=== PATIENT | male | born 1965 | race Caucasian/White ===

== ENCOUNTER 2017-06-01 11:44 | Emergency (ER) | payer OTHER ==
[2017-06-01 12:23] VITALS: BP 128/78
--- NOTE | 2017-06-01 15:54 | UC ---
Skin Complaint HPI - HPI Summary HPI Summary: pt p/w 2 month h/o intermittant redness and swelling of a skin tag located in her left axilla. the is no pain or any other sx. - History of Current Complaint Chief Complaint: UCSkin Time Seen by Provider: 06/01/17 12:36 Stated Complaint: LEFT ARMPIT SKIN COMPLAINT Hx Obtained From: Patient Onset/Duration: Gradual Onset, Lasting Weeks - 2, Still Present, Worse Since - last coule of days Timing: Intermittent Episodes Lasting: Onset Severity: Moderate Current Severity: Moderate Pain Intensity: 0 Pain Scale Used: 0-10 Numeric Location: Diffuse Character: Swelling, Redness Aggravating: Other - cathing on slee ves Alleviating: Nothing Associated Signs & Symptoms: Positive: Negative. Negative: Nausea, Vomiting, Diaphoresis, Weakness, Pallor, Shivering, Difficulty Breathing, Fever, Chills, Cough, Chest Pain, Hoarseness, Throat Tightening, Drainage, Tenderness - Allergy/Home Medications Allergies/Adverse Reactions: Allergies Allergy/AdvReac Type Severity Reaction Status Date / Time No Known Allergies Allergy Verified 06/01/17 11:59 Review of Systems Constitutional: Negative Skin: Other - see hpi Eyes: Negative ENT: Negative Respiratory: Negative Cardiovascular: Negative Gastrointestinal: Negative Genitourinary: Negative Musculoskeletal: Negative Neurological: Negative Psychological: Negative All Other Systems Reviewed And Are Negative: Yes PMH/Surg Hx/FS Hx/Imm Hx - Additional Past Medical History Additional PMH: obesitiy Cardiovascular History: Myocardial Infarction Other History Of: Negative For: HIV, Hepatitis B, Hepatitis C - Surgical History Surgical History: None - Family History Known Family History: Positive: Hypertension Negative: Cardiac Disease, Diabetes - Social History Lives: With Family Alcohol Use: None Substance Use Type: None Smoking Status (MU): Never Smoked Tobacco Physical Exam Triage Information Reviewed: Yes Appearance: Well-Appearing, No Pain Distress, Obese Vital Signs: Initial Vital Signs Temp 97.7 F 06/01/17 11:59 Pulse 63 06/01/17 11:59 Resp 16 06/01/17 11:59 BP 128/78 06/01/17 11:59 Pulse Ox 98 06/01/17 11:59 Vital Signs Reviewed: Yes Eyes: Positive: Conjunctiva Clear. Negative: Discharge ENT: Positive: Hearing grossly normal. Negative: Muffled/hoarse voice Respiratory: Positive: Lungs clear, Normal breath sounds, No respiratory distress, No accessory muscle use Cardiovascular: Positive: RRR, No Murmur Musculoskeletal Exam: Normal Neurological: Positive: Alert, Muscle Tone Normal Psychological: Positive: Age Appropriate Behavior Skin: Positive: Other - multiple skin tags over head, neck, chest and upper ext. in left axilla, pt has a large (1x3cm) pedunculated red swollen skin lesion. the lesion has some scaling and maceration. no tendernes at all. no fluctulance Course/Dx - Differential Diagnoses - Skin Complaint Differential Diagnoses: Abscess, Allergic Reaction, Cellulitis, Contact Dermatitis, Impetigo, Other - sqaumous cell carcinoma - Diagnoses Provider Diagnoses: cellulitis Discharge - Discharge Plan Condition: Stable Disposition: HOME Prescriptions: Cephalexin CAP* [Keflex CAP*] 500 mg PO BID #20 cap Patient Education Materials: Cellulitis (ED) Referrals: Tk Tovar MD [Medical Doctor] - (Follow up within 1-2 weeks) Marian Flores [Medical Doctor] - (Follow up within 1-2 weeks) Non Staff,Doctor [Primary Care Provider] - Additional Instructions: CEPHALEXIN: The antibiotic you've been prescribed is a member of the cephalosporin class. This type of antibiotic covers a wide variety of infections, including those of the skin, lungs, and urinary tract. It's useful for staph infections. This antibiotic is slightly similar to the penicillin family. In rare cases , a person who is allergic to penicillin will also be allergic to this medication. If you have had a severe allergic reaction to penicillin, and have not taken this antibiotic since that time, notify your doctor. Antibiotics which cover many germs ("broad spectrum" antibiotics) are more likely to cause diarrhea or "yeast" infections. Women prone to vaginal yeast problems may suffer an attack after taking this antibiotic. In infants, oral thrush (white spots "stuck" on the cheek) or yeast diaper rash may result. See your doctor if these problems occur. Call at once if you develop itching, hives , shortness of breath, or lightheadedness. ANYTIME YOU TAKE AN ANTIBIOTIC, IT IS IMPORTANT TO REPLENISH THE BODY'D SUPPLY OF "GOOD BACTERIA." YOU CAN GET GOOD BACTERIA FROM HIGH QUALITY CULTURED FOODS SUCH LOCAL YOGURT, SOUR KRAUT, YOLETTE CED, NATURALLY FERMENTED PICKLES AND PROBIOTIC DRINKS. YOU CAN ALSO GET GOOD BACTERIA FROM A PROBIOTIC SUPPLEMENT. FOLLOW-UP CARE: You should establish with a private physician for follow-up care. If you are unable to get a timely appointment, or if you are worsening, call us or return for re-evaluation. An additional resource available to assist in finding the appropriate physician for your health care needs is the [facility]erral Center. You may contact them by calling [phone].
== END 2017-06-01 13:01 | disposition home or self-care (01) ==
LOC: UCCORT 11:44
DX: L03.112 Cellulitis of left axilla (principal); L91.8 Other hypertrophic disorders of the skin; E66.9 Obesity, unspecified
CPT/HCPCS: 99212; G0463

== ENCOUNTER 2018-05-24 10:44 | Emergency (ER) | payer BC, OTHER ==
[2018-05-24 11:00] VITALS: BP 143/70
[2018-05-24] MEDS ORDERED: Lidocaine 1% MPF* 2 ML VIAL INJ ONE (11:13)
[2018-05-24] MEDS ORDERED: Triamcinolone Acetonide* 40 MG/ML 1 ML VIAL INTRAARTIC ONE (11:13)
--- NOTE | 2018-05-24 11:19 | UC ---
Elbow Pain - HPI Summary HPI Summary: C/O swelling left elbow x 1 month. No fevers. Occasionally tender. - History of Current Complaint Chief Complaint: UCUpperExtremity Stated Complaint: ELBOW (LEFT) CONCERN Time Seen by Provider: 05/24/18 11:05 Hx Obtained From: Patient Onset/Duration: Weeks - 4, Atraumatic, Still Present Severity Initially: Mild Severity Currently: Moderate Pain Intensity: 5 Location Of Pain: Is Discrete @ - left elbow Character: Dull Aggravating Factor(s): Movement Alleviating Factor(s): Rest Associated Signs And Symptoms: Positive: Swelling - Allergies/Home Medications Allergies/Adverse Reactions: Allergies Allergy/AdvReac Type Severity Reaction Status Date / Time No Known Allergies Allergy Verified 05/24/18 11:00 Home Medications: Home Medications NK [No Home Medications Reported] 05/24/18 [History Confirmed 05/24/18] PMH/Surg Hx/FS Hx/Imm Hx Cardiovascular History: Cardiac Disease Other History Of: Negative For: HIV, Hepatitis B, Hepatitis C - Surgical History Surgical History: Yes Surgery Procedure, Year, and Place: gallbladder surgery 2017 - Family History Known Family History: Positive: Cardiac Disease, Hypertension, Diabetes - Social History Occupation: Employed Full-time Lives: With Family Alcohol Use: None Substance Use Type: None Smoking Status (MU): Never Smoked Tobacco Have You Smoked in the Last Year: No Review of Systems Musculoskeletal: Arthralgia - left elbow Is Patient Immunocompromised?: No All Other Systems Reviewed And Are Negative: Yes Physical Exam Triage Information Reviewed: Yes Appearance: Well-Appearing, No Pain Distress, Obese Vital Signs: Initial Vital Signs Temp 97.8 F 05/24/18 10:56 Pulse 75 05/24/18 10:56 Resp 18 05/24/18 10:56 BP 143/70 05/24/18 10:56 Pulse Ox 97 05/24/18 10:56 Vital Signs Reviewed: Yes Eyes: Positive: Conjunctiva Clear Neck exam: Normal Respiratory Exam: Normal Cardiovascular Exam: Normal Musculoskeletal: Positive: Strength Intact, ROM Intact, Other: - Swelling over the left olecranon bursa Neurological Exam: Normal Psychological Exam: Normal Skin Exam: Normal Procedures - Procedure Summary Procedure Summary: Injection left olecranon bursa: Cosent and time out done. Betadine prep. 1cc injected. 0.5ml each kenalog 40 and 1% xylo. Pt tolerated it well. Elbow Pain Course/Dx - Differential Dx/Diagnosis Differential Diagnosis/HQI/PQRI: Bursitis, Cellulitis, Contusion, Fracture ( Closed) Provider Diagnoses: Olecranon Bursitis left elbow Discharge - Sign-Out/Discharge Documenting (check all that apply): Patient Departure - Discharge Plan Condition: Stable Disposition: HOME Patient Education Materials: Elbow Bursitis (ED), Cortisone (Injection) Referrals: Melany Gilmore PA [Primary Care Provider] - If Needed - Billing Disposition and Condition Condition: STABLE Disposition: Home
== END 2018-05-24 11:52 | disposition home or self-care (01) ==
LOC: UCCORT 10:44
DX: M70.22 Olecranon bursitis, left elbow (principal)
CPT/HCPCS: 99212; G0463; J3301

== ENCOUNTER 2019-01-09 09:58 | Emergency (ER) | payer BC ==
[2019-01-09 10:40] VITALS: BP 154/89
--- NOTE | 2019-01-09 12:00 | UC ---
Back Pain HPI - HPI Summary HPI Summary: 53 yo male with low back pain x 2 mos today slipped and twisted to left back pain is worse no hx ca no bowel or bladder symptoms no sciatica - History of Current Complaint Chief Complaint: UCBackPain Stated Complaint: LOWER BACK PAIN Time Seen by Provider: 01/09/19 10:36 Hx Obtained From: Patient Onset/Duration: Gradual Onset, Lasting Weeks, Worse Since - toda Severity Initially: Mild Severity Currently: Severe Pain Intensity: 8 Pain Scale Used: 0-10 Numeric Back Pain: Is Diffuse - lower Character: Aching, Throbbing, Spasmodic Aggravating Factor(s): Movement, Bending Alleviating Factor(s): Rest Associated Signs And Symptoms: Positive: Negative - Allergies/Home Medications Allergies/Adverse Reactions: Allergies Allergy/AdvReac Type Severity Reaction Status Date / Time No Known Allergies Allergy Verified 01/09/19 10:34 PMH/Surg Hx/FS Hx/Imm Hx Previously Healthy: Yes Other History Of: Negative For: HIV, Hepatitis B, Hepatitis C - Surgical History Surgical History: Yes Surgery Procedure, Year, and Place: gallbladder surgery 2018. hernia - Family History Known Family History: Positive: Cardiac Disease, Hypertension, Diabetes - Social History Alcohol Use: None Substance Use Type: None Smoking Status (MU): Never Smoked Tobacco Have You Smoked in the Last Year: No Review of Systems All Other Systems Reviewed And Are Negative: Yes Constitutional: Positive: Negative Skin: Positive: Negative Eyes: Positive: Negative ENT: Positive: Negative Respiratory: Positive: Negative Cardiovascular: Positive: Negative Gastrointestinal: Positive: Negative Genitourinary: Positive: Negative Motor: Positive: Negative Neurovascular: Positive: Negative Musculoskeletal: Positive: Arthralgia, Myalgia Neurological: Positive: Negative Psychological: Positive: Negative Physical Exam Triage Information Reviewed: Yes Appearance: Well-Appearing, No Pain Distress, Well-Nourished, Other: - bmi 45 Vital Signs: Initial Vital Signs Temp 97.9 F 01/09/19 10:34 Pulse 68 01/09/19 10:34 Resp 16 01/09/19 10:34 BP 154/89 01/09/19 10:34 Pulse Ox 99 01/09/19 10:34 Vital Signs Reviewed: Yes Eyes: Positive: Conjunctiva Clear ENT: Positive: Hearing grossly normal. Negative: Nasal congestion, Nasal drainage, Trismus, Muffled voice, Hoarse voice Neck: Positive: Supple, Nontender, No Lymphadenopathy Respiratory: Positive: Lungs clear, Normal breath sounds, No respiratory distress Cardiovascular: Positive: RRR, No Murmur Abdomen Description: Positive: Nontender. Negative: Bruit Bowel Sounds: Positive: Present Musculoskeletal: Positive: ROM Intact, No Edema Neurological: Positive: Alert, Other: - -SLR, sensory and strength intact, DTR symmetrical Psychological Exam: Normal Skin Exam: Normal Diagnostics - Radiology No standard instances Radiology Interpretation Completed By: Radiologist Summary of Radiographic Findings: 1. MILD TO MODERATE DIFFUSE DEGENERATIVE DISC DISEASE. 2. SPONDYLOLYSIS ON THE RIGHT SIDE AT THE L5 LEVEL. Back Pain Course/Dx - Differential Dx/Diagnosis Provider Diagnosis: Acute lumbar myofascial strain, DJD (degenerative joint disease), lumbar, DDD ( degenerative disc disease), lumbar, Elevated BP without diagnosis of hypertension Discharge - Sign-Out/Discharge Documenting (check all that apply): Patient Departure All imaging exams completed and their final reports reviewed: Yes - Discharge Plan Condition: Stable Disposition: HOME Forms: *Work Release Referrals: Melany Gilmore PA [Primary Care Provider] - 1 Week (bp needs rechecking as well as back) Additional Instructions: tylenol or advil don't take muscle relaxer and work or drive BP a little high here - Billing Disposition and Condition Condition: STABLE Disposition: Home
== END 2019-01-09 12:38 | disposition home or self-care (01) ==
LOC: UCCORT 09:58
DX: S39.012A Strain of muscle, fascia and tendon of lower back, initial encounter (principal); M47.896 Other spondylosis, lumbar region; M51.36 Other intervertebral disc degeneration, lumbar region; R03.0 Elevated blood-pressure reading, without diagnosis of hypertension; W18.40XA Slipping, tripping and stumbling without falling, unspecified, initial encounter; X50.0XXA Overexertion from strenuous movement or load, initial encounter; Y92.9 Unspecified place or not applicable
CPT/HCPCS: 72110; 99212; G0463

== ENCOUNTER 2019-04-19 13:37 | Emergency (ER) | payer BC ==
[2019-04-19 13:53] VITALS: BP 135/85
[2019-04-19] MEDS ORDERED: Cyclobenzaprine TAB* 10 MG PO ONE (14:00)
[2019-04-19] MEDS ORDERED: Ketorolac INJ* 30 MG/ML 1 ML VIAL IM ONE ×2 (14:01)
--- NOTE | 2019-04-19 14:06 | UC ---
Shoulder Pain HPI - HPI Summary HPI Summary: c/o R arm pain/tingling that started 1 month ago. Denies any injury. Hard to push against resistance when raising arm up. Hand grasps equal. No arm drift. No facial drooping - History of Current Complaint Chief Complaint: UCUpperExtremity Stated Complaint: RT SHOULDER TINGLING Time Seen by Provider: 04/19/19 13:48 Hx Obtained From: Patient Onset/Duration: Gradual Onset, Lasting Weeks Timing: Constant Severity Initially: Mild Severity Currently: Moderate Pain Intensity: 7 Character: Aching Aggravating Factor(s): Movement Alleviating Factor(s): Rest Associated Signs And Symptoms: Positive: Numbness/Tingling - Allergies/Home Medications Allergies/Adverse Reactions: Allergies Allergy/AdvReac Type Severity Reaction Status Date / Time No Known Allergies Allergy Verified 04/19/19 13:47 PMH/Surg Hx/FS Hx/Imm Hx Previously Healthy: Yes Other History Of: Negative For: HIV, Hepatitis B, Hepatitis C - Surgical History Surgical History: Yes Surgery Procedure, Year, and Place: gallbladder surgery 2018. hernia - Family History Known Family History: Positive: Cardiac Disease, Hypertension, Diabetes - Social History Alcohol Use: None Substance Use Type: None Smoking Status (MU): Former Smoker Have You Smoked in the Last Year: No When Did the Patient Quit Smoking/Using Tobacco: 1979 Review of Systems All Other Systems Reviewed And Are Negative: Yes Musculoskeletal: Positive: Decreased ROM, Myalgia Is Patient Immunocompromised?: No Physical Exam Triage Information Reviewed: Yes Appearance: Well-Appearing, Pain Distress, Obese Vital Signs: Initial Vital Signs Temp 97.6 F 04/19/19 13:48 Pulse 79 04/19/19 13:48 Resp 18 04/19/19 13:48 BP 135/85 04/19/19 13:48 Pulse Ox 98 04/19/19 13:48 Vital Signs Reviewed: Yes Eye Exam: Normal ENT Exam: Normal Dental Exam: Normal Neck exam: Normal Respiratory Exam: Normal Cardiovascular Exam: Normal Abdominal Exam: Normal Musculoskeletal: Positive: Strength Intact, No Edema, ROM Limited @ - unable to put arm up over his head, states due to pain, but patients size is also a factor Neurological Exam: Normal 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 able to hold arm up against resistance but causes pain in mid deltoid Psychological Exam: Normal Shoulder Course/Dx - Course Course Of Treatment: history obtained, exam performed ,meds reviewed, given flexeril and toradol, with a little relief, demonstrated appropriate stretches and the need for heat, given a referral to PT and script for meloxicam. - Differential Dx/Diagnosis Differential Diagnosis/HQI/PQRI: Contusion, Rotator Cuff Injury, Sprain, Strain , Tendonitis Provider Diagnosis: Muscle spasm Discharge - Sign-Out/Discharge Documenting (check all that apply): Patient Departure All imaging exams completed and their final reports reviewed: No Studies - Discharge Plan Condition: Stable Disposition: HOME Prescriptions: Meloxicam(NF) [Mobic(NF)] 15 mg PO DAILY #30 tab Patient Education Materials: Muscle Spasm (ED) Forms: *Work Release Referrals: Melany Gilmore PA [Primary Care Provider] - Stephan De La Cruz [Physical Therapist] - Additional Instructions: 1. take the medication as prescribed. 2. Heat the arm daily and stretch. 3. Follow up with physical therapy if not improving in the next week. - Billing Disposition and Condition Condition: STABLE Disposition: Home - Attestation Statements Provider Attestation: I was available for consult. This patient was seen by the [facility]. The patient was not presented to , seen by or examined by me -West Johns MD
== END 2019-04-19 14:52 | disposition home or self-care (01) ==
LOC: UCCORT 13:37
DX: M62.838 Other muscle spasm (principal); Z87.891 Personal history of nicotine dependence
CPT/HCPCS: 96372; 99212; A9270-GY; G0463; J1885